=== PATIENT | male | born 1940 | race Caucasian/White ===

== ENCOUNTER → 2018-05-13 | Outpatient (CLI) | payer MEDICARE | END | disposition home or self-care (01) | LOC: PCVCCLINIC 14:24 | DX: I42.0 Dilated cardiomyopathy (principal); I25.10 Atherosclerotic heart disease of native coronary artery without angina pectoris; I48.0 Paroxysmal atrial fibrillation; I10 Essential (primary) hypertension; I49.3 Ventricular premature depolarization; E78.5 Hyperlipidemia, unspecified; Q27.33 Arteriovenous malformation of digestive system vessel; Z79.899 Other long term (current) drug therapy | CPT/HCPCS: 80061; 93005; G0463 ==

== ENCOUNTER → 2018-12-04 | Outpatient (CLI) | payer MEDICARE ==
--- NOTE | 2018-12-04 09:41 | PCVCIMAG ---
APPROVED REPORT Study performed: 12/04/2018 08:13:53 EXAM: Comprehensive 2D, Doppler, and color-flow Echocardiogram Patient Location: Echo lab Status: routine BSA: 2.37 HR: 60 bpmBP: 128/78 mmHg Rhythm: NSR Other Information Study Quality: Adequate Risk Factors: Cardiac Risk Factors: HTN Indications Cardiomyopathy Hypertension/HDD Paroxysmal atrial fib. Hyperlipidemia 2D Dimensions IVSd: 16.95 (7-11mm)LVOT Diam: 24.89 (18-24mm) LVDd: 58.33 mm PWd: 15.05 (7-11mm)Ascending Ao: 34.09 (22-36mm) LVDs: 49.92 (25-40mm) Left Atrium: 50.30 (27-40mm) Aortic Root: 31.08 mm LV Single Plane 4CH: 35.00 % LV Single Plane 2CH: 35.95 % Biplane EF: 38.0 % Volumes Left Atrial Volume (Systole) Single Plane 4CH: 93.21 mLSingle Plane 2CH: 70.74 mL LA ESV Index: 35.00 mL/m2 Aortic Valve AoV Peak Rios.: 2.74 m/s AO Peak Gr.: 30.00 mmHgLVOT Max P.96 mmHg AO Mean Gr.: 16.87 mmHg AO V2 Mean: 1.94 m/sLVOT Max V: 1.00 m/s AO V2 VTI: 52.34 cm RAPHAEL Vmax: 1.77 cm2 Mitral Valve E/A Ratio: 1.1 MV Decel. Time: 1324.51 ms MV E Max Rios.: 0.96 m/s MV A Rios.: 0.91 m/s IVRT: 176.47 ms Pulmonary Valve PV Peak Gr.: 2.60 mmHg Tricuspid Valve TR Peak Rios.: 1.94 m/s TR Peak Gr.: 15.13 mmHg Left Ventricle The left ventricle is normal size. There is global hypokinesis of the left ventricle. Borderline concentric left ventricular hypertrophy. Left ventricular systolic function is moderately decreased. LVEF 40%. Mild diastolic dysfunction is present (impaired relaxation pattern). Right Ventricle The right ventricle is normal size. The right ventricular systolic function is normal. Atria Left atrium is mildly dilated. Right atrium is mildly dilated. Aortic Valve The aortic valve is calcified. Trace aortic regurgitation Calculated aortic valve area is 1.8 cm2 with maximum pressure gradient of 30 mmHg and mean pressure gradient of 17 mmHg. Mitral Valve Mild mitral annular calcification Trace mitral regurgitation. No evidence of mitral valve stenosis. Tricuspid Valve The tricuspid valve is normal in structure. Trace tricuspid regurgitation. Pulmonic Valve The pulmonary valve is normal in structure. Trace pulmonic regurgitation. Great Vessels The aortic root is normal in size. IVC is normal in size and collapses >50% with inspiration. Pericardium There is no pericardial effusion. <Conclusion> Left ventricular systolic function is moderately decreased. There is global hypokinesis of the left ventricle. LVEF 40%. Mild diastolic dysfunction Both atria are mildly dilated The aortic valve is calcified, mildly stenotic; trace insufficiency. Calculated aortic valve area is 1.8 cm2 with maximum pressure gradient of 30 mmHg and mean pressure gradient of 17 mmHg. Mild mitral annular calcification. Trace mitral regurgitation. Pulmonary artery pressure could not be reliably ascertained There is no pericardial effusion.
== END | disposition home or self-care (01) ==
LOC: PCVCIMAG 08:20
PROVIDERS: ATTEND Internal Medicine
DX: I42.0 Dilated cardiomyopathy (principal); I10 Essential (primary) hypertension; I48.0 Paroxysmal atrial fibrillation; E78.5 Hyperlipidemia, unspecified; I25.10 Atherosclerotic heart disease of native coronary artery without angina pectoris; I35.0 Nonrheumatic aortic (valve) stenosis; I49.3 Ventricular premature depolarization; Q27.33 Arteriovenous malformation of digestive system vessel; K21.9 Gastro-esophageal reflux disease without esophagitis
CPT/HCPCS: 36415; 80061; 93005; 93306; G0463